=== PATIENT | female | born 1995 | race Caucasian/White ===

== ENCOUNTER → 2017-03-04 | Outpatient (CLI) | payer BC ==
--- NOTE | 2017-03-04 13:55 | NUR ---
[facility] Introduced self and role of nurse navigator. Nurse navigator brochure given with my contact information circled on back. Permission received for follow up call.
--- NOTE | 2017-03-05 12:09 | NUR ---
Follow up call post breast biopsy. Patient doing well. States she had some discomfort last evening at biopsy site. Area is tender today but "not painful". No questions or concerns.
== END | disposition disaster alternative care site (69) ==
LOC: GOPD 02-14 → GPOC 02-14 → GBCOE 02-14 → GOPP 02-14 → GOPD 02-21
PROC: 0HBU3ZX Excision of Left Breast, Percutaneous Approach, Diagnostic (ICD-10-PCS; principal; 2017-03-04)
DX: N63 Unspecified lump in breast (principal)
CPT/HCPCS: J7050